=== PATIENT | female | born 1980 | race Caucasian/White ===

== ENCOUNTER → 2018-11-04 | Outpatient (CLI) | payer BC ==
--- NOTE | 2018-11-05 10:06 | RADIOLOGY REPORT (SQ) ---
EXAM DESCRIPTION: U/S THYROID/SFT TISS HD NECK COMPLETED DATE/TIME: 11/04/2018 5:49 pm REASON FOR STUDY: R22.1 LOCALIZED SWELLING, MASS AND LUMP, NECK R22.1 LOCALIZED SWELLING, MASS AND LUMP, NECK COMPARISON: None. TECHNIQUE: Dynamic and static ku-scale images acquired of the thyroid gland. Selected additional c olor/power Doppler images recorded. All images stored to PACS. LIMITATIONS: None. FINDINGS: RIGHT LOBE: Right lobe is diffusely enlarged, 6 x 2.6 x 2.4 cm in size with heterogeneous echotexture. No discrete cystic or solid masses. LEFT LOBE: Left lobe is diffusely enlarged, 6 x 2 9 x 2.7 cm in size with heterogeneous echotexture. No cystic or solid masses. ISTHMUS: Diffusely thickened, 1.5 cm in thickness Homogeneous echotexture. No cystic or solid estelle s. OTHER: No other significant finding. IMPRESSION: Diffuse thyromegaly without discrete nodule. TECHNICAL DOCUMENTATION: JOB ID: [id number] [employer]- All Rights Reserved Reading location - IP/workstation name: [email or web address]
== END ==
LOC: RAD 16:00
PROVIDERS: ATTEND Nurse Practitioner Family
DX: R22.1 Localized swelling, mass and lump, neck (principal)
CPT/HCPCS: 76536